=== PATIENT | male | born 1955 | race Caucasian/White ===

== ENCOUNTER 2022-03-31 08:16 | Emergency (ER) | payer SELFPAY ==
[~2022-03-31] VITALS: Ht 160 cm; Wt 65.3 kg
[2022-03-31 08:26] VITALS: BP 162/77
--- NOTE | 2022-03-31 08:55 | NUR ---
66 y/o male w/ concern of skin infection. Reports was working and scrapped left flank against steel wire 6 days ago. Raised vesicles noted to left lower flank. Partial area turning black in color. Pt using hydrogen peroxide to cleanse and applying arnica ointment. Pain reported at 10/10 burning and itching. Took Ibuprofen for pain with mild relief. Denies fever, chills, headache, tingling, or numbing. pmh: denies NKA
--- NOTE | 2022-03-31 09:00 | NUR ---
Dr Costello at bedside for evaluation
[2022-03-31] MEDS ORDERED: IBUPROFEN 800 MG TAB PO ONE (09:05)
[2022-03-31] MEDS ORDERED: ACYCLOVIR 200 MG CAP PO ONE (09:05)
[2022-03-31] MEDS ORDERED: IBUP-2213 PO (09:23)
[2022-03-31] MEDS ORDERED: ACYC-278 PO (09:23)
[2022-03-31] MEDS ORDERED: BENC TP (09:23)
[2022-03-31] MEDS ORDERED: GABA400C PO (09:23)
[2022-03-31] MEDS ORDERED: LID5T TP (09:23)
[2022-03-31 09:49] VITALS: BP 162/77
--- NOTE | 2022-03-31 09:49 | NUR ---
Patient discharged with v/s stable. Written and verbal after care instructions given and explained. Patient alert, oriented and verbalized understanding of instructions. Ambulatory with steady gait. All questions addressed prior to discharge. ID band removed. Patient advised to follow up with PMD. Rx of Ibuprofen, Acyclovir, Lidocaine, Gabapentin given. Patient educated on indication of medication including possible reaction and side effects. Opportunity to ask questions provided and answered.
[2022-03-31] MEDS ORDERED: GABAPENTIN 300 MG CAP PO ONE (10:00)
== END 2022-03-31 09:49 | disposition home or self-care (01) ==
LOC: MED 08:16
DX: B02.9 Zoster without complications (principal); Z79.899 Other long term (current) drug therapy
CPT/HCPCS: 99284

== ENCOUNTER → 2022-04-04 13:07 | Emergency (ER) | payer SELFPAY ==
[~2022-04-04 13:07] MED LIST: ACYC-278 PO; BENC TP; GABA400C PO; IBUP-2213 PO; LID5T TP
== END | disposition left against medical advice (07) ==
LOC: MED 13:07
DX: Z53.21 Procedure and treatment not carried out due to patient leaving prior to being seen by health care provider (principal)